=== PATIENT | female | born 1995 | race Caucasian/White ===

== ENCOUNTER 2019-07-26 22:38 | Emergency (ER) | payer OTHER, SELFPAY ==
[2019-07-26 22:39] VITALS: BP 143/102; PULSE 110; RESP 16; TEMP 36.6; O2SAT 99; BMI 31.6
--- NOTE | 2019-07-26 23:01 | EKG12_ITS ---
Test Reason : SOB Blood Pressure : / mmHG Vent. Rate : 102 BPM Atrial Rate : 102 BPM P-R Int : 138 ms QRS Dur : 080 ms QT Int : 344 ms P-R-T Axes : 036 042 025 degrees QTc Int : 448 ms Sinus tachycardia Otherwise normal ECG Confirmed by OWEN MONTOYA, AURY ([id number]), department editor ANKITA MCGREGOR ([id number]) on 07/30/2019 1:34:29 PM Referred By: TRUPTI Confirmed By:AURY WEAVER MD
--- NOTE | 2019-07-26 23:04 | ED.DCSUM_ITS ---
History of Present Illness Chief Complaint: Shortness of Breath Informant: Patient, Family Onset: Hours - 1-2 Context: Sudden Onset Timing: Continuous Quality: dyspnea Location: not head/neck Current Severity: Mild Maximum Severity: Mild Worsened by: nothing Relieved by: nothing Associated Symptoms: mild epigastric pain that radiates straight through into back Narrative: Healthy Karthikeyan 23-year-old who delivered a spontaneous vaginal delivery at term about 7 weeks ago and has had no peripartum or issues. No recent illnesses, no coughing, she denies having any chest pain, but states all of a sudden an hour or 2 prior to arrival she started having epigastric discomfort and shortness of breath simultaneously. She denies epigastric discomfort starting first. She states that it does get worse when she takes deep breath. She does not appear short of breath, however she states that she still is, just as she was when it started a little while ago. She denies any pain or swelling in her legs or history of DVT or PE. Past Medical History - Allergies and Home Meds Allergies/Adverse Reactions: Allergies No Known Allergies Allergy (Verified 07/26/19 22:41) Primary Care Physician: Mateo Brown DO [Primary Care Provider] - Past Medical History: None Lives: With Family Smoking Status: Never smoker Drugs: None Review of Systems General: Denies: Chills, Fever, Sweats Eyes: Denies: Visual changes - bilaterally, Diplopia ENT: Denies: Rhinorrhea, Sore throat Cardiovascular: Denies: Chest pain, Palpitations Respiratory: Reports: Dyspnea. Denies: Cough, Dyspnea on exertion, Orthopnea Gastrointestinal: Reports: Abdominal pain. Denies: Nausea, Vomiting, Diarrhea, Melena, Hematochezia Genitourinary: Denies: Dysuria, Hematuria, Frequency Musculoskeletal: Reports: Back pain. Denies: Myalgias, Neck pain, Swelling, Extremity Pain Skin: Denies: Rash, Wounds Neurological: Denies: Headache, Weakness, Numbness Physical Exam Vital Signs/Narrative: Vital Signs Temp Pulse Resp BP Pulse Ox 07/26/19 22:39 97.9 F 110 H 16 143/102 H 99 Inital Vital Signs reviewed: Yes General: Well nourished, Well developed, No Acute Distress - well-appearing, NAD. conversive in full sentences. Head: Normocephalic, Atraumatic Eyes: Perrl, EOMI ENT: Moist mucous membranes, No rhinorrhea, - - no stridor. Negative for: Sinus tenderness Neck: Supple, Nontender, No lymphadenopathy, No JVD Cardiovascular: Regular rate, Regular rhythm, No murmurs, Tachycardia - mild Respiratory: No distress, CTA bilaterally, Chest nontender Abdomen: Soft, Nondistended, Normal bowel sounds, No masses, Tender - very mild, subjectively tender only, at RUQ and epigastrium. Negative for: Pulsatile mass Back: Nontender, Normal Inspection Extremities: Nontender, No edema. Negative for: Calf Tenderness Skin: Normal color, No rash, No Trauma Neurological: Alert, Oriented x3, Cranial nerves II-XII grossly intact, Normal Strength, Normal Sensation, Normal Gait Psychological: Normal affect, Normal Mood Diagnostic/Tx/Re-eval Impressions Chest X-Ray 07/27/19 00:12 IMPRESSION: No acute cardiopulmonary abnormality. at 0028 Reported and signed by: Bárbara Erazo MD Electronically Signed: Bárbara Erazo MD at 0:28 EDT Tel , Service support , 07/27/19 00:12 Chest PA and Lateral [RAD] Stat Laboratory Results 07/26/19 07/26/19 07/26/19 23:25 23:25 23:25 WBC 8.7 RBC 4.24 Hgb 13.1 Hct 38.5 MCV 90.8 MCH 30.9 MCHC 34.0 RDW Std Deviation 37.0 RDW Coeff of Codi 11.3 L Plt Count 233 MPV 9.7 Immature Gran % (Auto) 0.500 Neut % (Auto) 65.4 Lymph % (Auto) 23.3 Reynolds % (Auto) 9.4 Eos % (Auto) 0.7 Baso % (Auto) 0.7 Absolute Neuts (auto) 5.7 Absolute Lymphs (auto) 2.04 Nucleated RBC % 0 D-Dimer Quant (PE/DVT) <= 0.27 Sodium 142 Potassium 3.9 Chloride 110 H Carbon Dioxide 28.0 Anion Gap 4 L BUN 13 Creatinine 0.77 Estim Creat Clear Calc 82.32 Est GFR (MDRD) Af Amer 120 Est GFR (MDRD) Non-Af 99 BUN/Creatinine Ratio 16.9 Glucose 109 H Calcium 9.3 Total Bilirubin 0.20 AST 25 ALT 57 H Alkaline Phosphatase 127 H Troponin I < 0.015 Total Protein 7.7 Albumin 3.5 Globulin 4.2 Albumin/Globulin Ratio 0.8 L Lipase 164 Urine Color Urine Clarity Urine pH Ur Specific [place] Urine Protein Urine Glucose (UA) Urine Ketones Urine Occult Blood Urine Nitrite Urine Bilirubin Urine Urobilinogen Ur Leukocyte Esterase Urine RBC Urine WBC Ur Squamous Epith Cells Urine Bacteria Urine Mucus 07/26/19 23:30 WBC RBC Hgb Hct MCV MCH MCHC RDW Std Deviation RDW Coeff of [place] Plt Count MPV Immature Gran % (Auto) Neut % (Auto) Lymph % (Auto) Reynolds % (Auto) Eos % (Auto) Baso % (Auto) Absolute Neuts (auto) Absolute Lymphs (auto) Nucleated RBC % D-Dimer Quant (PE/DVT) Sodium Potassium Chloride Carbon Dioxide Anion Gap BUN Creatinine Estim Creat Clear Calc Est GFR (MDRD) Af Amer Est GFR (MDRD) Non-Af BUN/Creatinine Ratio Glucose Calcium Total Bilirubin AST ALT Alkaline Phosphatase Troponin I Total Protein Albumin Globulin Albumin/Globulin Ratio Lipase Urine Color Yellow Urine Clarity Clear Urine pH 8.0 Ur Specific [place] 1.010 Urine Protein Negative Urine Glucose (UA) Normal Urine Ketones Negative Urine Occult Blood Negative Urine Nitrite Negative Urine Bilirubin Negative Urine Urobilinogen Normal Ur Leukocyte Esterase Negative Urine RBC 0 SEEN Urine WBC 0 SEEN Ur Squamous Epith Cells 0 SEEN Urine Bacteria 0 SEEN Urine Mucus 0 SEEN - Rhythm Strip Rhythm Strip: Sinus Rhythm Rate: 102 Ectopy: None - EKG Initial EKG Interpretation: No Acute Injury Pattern, Sinus Tachycardia Prior: No Prior - Medical Decision Making EKG and d-dimer are normal. Since the d-dimer was normal, obtained a chest x- ray rather than a CTA, it is normal. Lipase is normal, white blood count normal, her alkaline phosphatase is up just slightly but the rest of her liver enzymes are normal. Patient presents after ultrasound is gone and not available. I do not think she needs a CT, she is not very tender. I initially gave her a GI cocktail but it did not change any of her discomfort. Therefore I performed a bedside screening ultrasound of her right upper quadrant, her liver and kidney look normal, however her gallbladder appears to have layering small stones within it that shadow. The gallbladder wall is 0.2 cm, within normal limits. She does have some mild tenderness in her upper quadrant but a negative Jauregui's clinically, and she is tender in the area of the gallbladder on ultrasound, albeit mild. I do not see any pockets of pericholecystic fluid. However, my ultrasound is relatively limited when it comes to that. I offered her something else for pain like Toradol, she declines and states she is really not in much discomfort right now. I suspect that she is having biliary pain, and as a result of it being pleuritic, is feeling a little dyspneic, since the rest of her work-up is negative. She agrees that this could be the case based on how she feels. We discussed low-fat diet, prescription medication just in case she has more pain in the meantime, reasons to return to the ER, and referral as an outpatient to surgery and obtaining an outpatient ultrasound which I gave her a prescription for. She is undecided whether she is going to have it done here, and see our surgeon or go down to [place]. All questions answered at the bedside. ED Disposition - Plan for ED Patient: Disposition: Home or Assisted Living Diagnosis: Biliary colic, Cholelithiasis Instructions: ED Gallstones with Biliary Colic Prescriptions: Hydrocodone Bitart/Apap 5-325 [Surprise 5MG-325MG] 1 tab PO Q4H PRN PRN 2 Days #8 tab PRN Reason: Pain Prescription Printed Referrals: Mateo Brown DO [Primary Care Provider] - (and/or surgeon) Dario Arriola MD [STAFF PHYSICIAN] - (call for appt to be seen after your ult rasound completed (doesn't have to be same day))
[2019-07-26] MEDS: Mag Hydrox/Al Hydrox/Simeth 30 ML UDC PO (23:16)
[2019-07-26 23:33] LABS: Absolute Lymphocyte Count 2.04 X10^3/uL (0.83-4.51); Absolute Neutrophil Count 5.7 X10^3/uL (2.0-7.7); Basophil# 0.06 X10^3/uL; Basophil% 0.7 % (0-1); Eosinophil# 0.06 X10^3/uL; Eosinophils% 0.7 % (0-5); Hematocrit 38.5 % (37-47); Hemoglobin 13.1 g/dL (12.0-15.0); Lymphocyte # 2.04 X10^3/ul (4.0); Lymphocyte % 23.3 % (19-41); Mean Corpuscular Hgb 30.9 pg (27.0-32.0); Mean Corpuscular Volume 90.8 fL (81-99); Mean Platelet Vol. 9.7 fl (6.2-12.0); Monocyte# 0.82 X10^3/uL; Monocyte% 9.4 % (0-10); NRBC Flagged by Analyzer 0 % (0-5); Neutrophil # 5.72 X10^3/uL (2.7-7.7); Neutrophil % 65.4 % (47-70); Platelet Count 233 K/mm3 (150-450); RBC Distribution Width CV 11.3 % (11.6-14.6); Red Blood Count 4.24 M/mm3 (4.2-5.4); White Blood Count 8.7 K/mm3 (4.4-11.0)
[2019-07-26 23:39] LABS: Bacteria 0 SEEN /hpf (None Seen); Mucous, Urine 0 SEEN /hpf (<or=2+); Red Blood Cells-Urine 0 SEEN /hpf (0-5); Squamous Epithelial Cells - UA 0 SEEN /hpf (5-10); White Blood Cells 0 SEEN /hpf (0-5)
[2019-07-26 23:42] LABS: Color, Urine Yellow (Yellow); Glucose, Dipstick Normal (Normal); Ketone-Dipstick Negative (Negative); Leukocyte Esterase-Dipstick Negative /ul (Negative); Nitrite-Dipstick Negative (Negative); Occult Blood-Urine Negative /ul (Negative); Protein-Dipstick Negative (Negative); Urine Bilirubin Dipstick Negative (Negative); Urine Clarity Clear (Clear); Urine Urobilinogen Normal (Normal)
[2019-07-26 23:44] LABS: D-Dimer Quantitative (DVT/PE) <= 0.27 FEU/ug/m (0.27-0.49)
[2019-07-26 23:51] LABS: ALB/GLOB Ratio 0.8 RATIO (0.9-2.4); AST(SGOT) 25 U/L (15-37); Alanine Aminotransfer ALT/SGPT 57 U/L (13-56); Albumin, Serum 3.5 g/dL (3.2-5.0); Alkaline Phosphatase 127 U/L (45-117); Anion Gap 4 (5-15); BUN 13 mg/dL (7-18); BUN/Creat Ratio 16.9 RATIO (10-20); Calcium,Total 9.3 mg/dL (8.5-10.1); Chloride 110 mmol/L (98-107); Creatinine, Serum 0.77 mg/dL (0.55-1.02); EST Glomerular Filtration Rate 99 mL/min (>60); Est Glom Filt Rate - Afr Amer 120 mL/min (>60); Estimated Creatinine Clearance 82.32 ml/min; Globulin 4.2 g/dL (2.2-4.2); Glucose 109 mg/dL (74-106); Lipase 164 U/L (73-393); Potassium 3.9 mmol/L (3.5-5.1); Protein, Total 7.7 g/dL (6.4-8.2); Sodium Level 142 mmol/L (136-145)
--- NOTE | 2019-07-27 00:12 | RAD_ITS ---
HISTORY: COMPLAINS OF SUDDEN ONSET DYSPNEA, ALSO EPIGASTRIC DISCOMFORT, Tquot;FEELS WARMTquot;. 7 WKS POST ADDITIONAL HISTORY: None provided. COMPARISON: None TECHNIQUE: Frontal and lateral chest radiographs. Number of images including paperwork: 2 FINDINGS: LUNGS AND PLEURA: No consolidation, mass or pleural effusion. CARDIAC SILHOUETTE: Unremarkable. MEDIASTINUM AND ALEXA: Unremarkable. UPPER ABDOMEN: Unremarkable. SKELETON AND SOFT TISSUES: No acute findings. OTHER DEVICES AND HARDWARE: None. RAD/Chest PA and Lateral IMPRESSION: No acute cardiopulmonary abnormality. at 0028 Reported and signed by: Bárbara Erazo MD Electronically Signed: Bárbara Erazo MD at 0:28 EDT Tel , Service support ,
[2019-07-27 01:36] VITALS: BP 115/71; PULSE 86; O2SAT 100
== END 2019-07-27 01:37 | disposition home or self-care (01) ==
PROVIDERS: Emergency Provider Emergency Medicine; PCP Family Medicine
DX: K80.70 Calculus of gallbladder and bile duct without cholecystitis without obstruction (principal)
CPT/HCPCS: 71046; 80053; 81001; 83690; 84484; 85025; 85379; 93005; 99284; A4216